=== PATIENT | female | born 1950 | race Caucasian/White ===

== ENCOUNTER 2016-10-28 19:14 | Inpatient (IN) | payer MEDICAID ==
[~2016-10-28] VITALS: Ht 160 cm; Wt 69.2 kg
[~2016-10-28 19:14] MED LIST: DULO60CA44 PO; FERS325 PO; OMEP10 PO; OXYB5 PO; QUET300T2 PO; RISP2TAB76 PO
[2016-10-28] MEDS ORDERED: DSS100 PO (19:56)
[2016-10-28] MEDS ORDERED: DULO60CA44 PO (19:56)
[2016-10-28] MEDS ORDERED: DULO30CA2 PO (19:56)
[2016-10-28] MEDS ORDERED: VIST50 PO (19:56)
[2016-10-28] MEDS ORDERED: BENZ1TAB10 PO (19:56)
[2016-10-28] MEDS ORDERED: QUET200T PO (19:56)
[2016-10-28] MEDS ORDERED: RISP4 PO (19:56)
[2016-10-28] MEDS ORDERED: LORazepam 2 MG TABLET PO PRN (20:45)
[2016-10-28] MEDS ORDERED: QUEtiapine FUMARATE 100 MG TABLET PO PRN (20:45)
[2016-10-28 21:17] VITALS: BP 144/89
[2016-10-28] MEDS ORDERED: PERMETHRIN 5% 60 GM CREAM TP ONE (21:30)
[2016-10-29] VITALS: BP 137/95
[2016-10-29] MEDS: ZOLPIDEM TARTRATE 10 MG TABLET PO PRN ×2 (00:03→19:57)
[2016-10-29 08:01] VITALS: BP 118/72
[2016-10-29 08:19] LABS: BASOPHILS # (AUTO) 0.02 K/uL (0.00-0.20); BASOPHILS % (AUTO) 0.3 % (0.0-2.0); EOSINOPHILS # (AUTO) 0.27 K/uL (0.00-0.70); EOSINOPHILS % (AUTO) 5.38 % (1.0-6.0); HEMATOCRIT 33.2 % (36-46); HEMOGLOBIN 11.1 g/dL (12.0-16.0); LYMPHOCYTES # (AUTO) 1.9 K/uL (1.0-4.8); MEAN CORPUSCULAR HEMOGLOBIN 28.3 pg (26.0-34.0); MEAN CORPUSCULAR HGB CONC 33.5 G/dL (31.0-37.0); MEAN CORPUSCULAR VOLUME 84 fL (80-100); MONOCYTES # (AUTO) 0.5 K/uL (0.1-1.0); MONOCYTES % (AUTO) 9.5 % (2.0-9.0); NEUTROPHILS # (AUTO) 2.4 K/uL (1.8-7.7); NEUTROPHILS % (AUTO) 46.8 % (40.0-70.0); PLATELET COUNT (AUTO) 224 K/uL (150-450); RED BLOOD CELL COUNT(AUTO) 3.93 MIL/uL (4.00-5.20); RED CELL DISTRIBUTION WIDTH 14.5 % (11.5-14.5); WHITE BLOOD COUNT (AUTO) 5.1 K/uL (4.5-11.0)
[2016-10-29 08:44] LABS: ALANINE AMINOTRANSFERASE 27 U/L (12-78); ALBUMIN 3.4 g/dL (3.4-5.0); ANION GAP 9 mmol/L (8-16); ASPARTATE AMINOTRANSFERASE 22 U/L (15-37); BILIRUBIN,TOTAL 0.3 mg/dL (0.1-1.0); CALCIUM, TOTAL 8.6 mg/dL (8.8-10.5); CARBON DIOXIDE 28 mmol/L (22-29); CHLORIDE 106 mmol/L (98-107); CHOL/HDL RATIO 2.3 (3.9-5.7); CREATININE 0.81 mg/dL (0.60-1.30); GLOMERULAR FILTR. RATE CALC > 60 mL/min (>60); POTASSIUM 3.8 mmol/L (3.5-5.1); SODIUM SERUM 143 mmol/L (136-145); TOTAL PROTEIN, SERUM 6.6 g/dL (6.4-8.2); UREA NITROGEN, BLOOD 16 mg/dL (7-18)
[2016-10-29 16:20] VITALS: BP 127/71
[2016-10-30] VITALS (7 sets, daily range): BP systolic 112–154; BP diastolic 70–86
[2016-10-30] MEDS: ARIPiprazole 5 MG TABLET PO SCH (09:17)
[2016-10-30] MEDS ORDERED: ACETAMINOPHEN 325 MG TABLET PO PRN (09:45)
[2016-10-30] MEDS: IBUPROFEN 600 MG TABLET PO PRN ×2 (10:02→17:36)
[2016-10-30] MEDS: MIRTAZAPINE 15 MG TABLET PO SCH (20:12)
[2016-10-31 00:01] VITALS: BP 132/74
[2016-10-31 08:29] VITALS: BP 128/76
[2016-10-31] MEDS: ARIPiprazole 5 MG TABLET PO SCH (08:37)
[2016-10-31 16:01] VITALS: BP 106/62
[2016-10-31] MEDS: MIRTAZAPINE 15 MG TABLET PO SCH (20:21)
[2016-11-01 06:27] VITALS: BP 132/77
[2016-11-01 08:09] LABS: HEMOGLOBIN A1C 5.6 % (4.5-6.2)
[2016-11-01 08:14] LABS: ALANINE AMINOTRANSFERASE 59 U/L (12-78); ALBUMIN 3.6 g/dL (3.4-5.0); ANION GAP 10 mmol/L (8-16); ASPARTATE AMINOTRANSFERASE 50 U/L (15-37); BILIRUBIN,TOTAL 0.2 mg/dL (0.1-1.0); CARBON DIOXIDE 25 mmol/L (22-29); CHLORIDE 106 mmol/L (98-107); CREATININE 0.75 mg/dL (0.60-1.30); GLOMERULAR FILTR. RATE CALC > 60 mL/min (>60); POTASSIUM 3.9 mmol/L (3.5-5.1); SODIUM SERUM 141 mmol/L (136-145); THYROID STIMULATING HORMONE 2.09 uIU/mL (0.36-3.74); TOTAL PROTEIN, SERUM 7.5 g/dL (6.4-8.2); UREA NITROGEN, BLOOD 21 mg/dL (7-18)
[2016-11-01 08:52] VITALS: BP 154/96
[2016-11-01] MEDS: ARIPiprazole 5 MG TABLET PO SCH (08:53)
[2016-11-01 14:23] VITALS: BP 134/70
[2016-11-01 16:17] VITALS: BP 138/95
[2016-11-01] MEDS ORDERED: MIRT30 PO (17:44)
[2016-11-01] MEDS ORDERED: ARIP5TAB9 PO (17:44)
[2016-11-01] MEDS ORDERED: MIRTAZAPINE 30 MG TABLET PO SCH (21:00)
[2016-11-02 01:36] VITALS: BP 122/76
[2016-11-02 08:39] VITALS: BP 130/73
[2016-11-02] MEDS: ARIPiprazole 5 MG TABLET PO SCH (08:48)
[2016-11-02 13:46] LABS: HEPATITIS Bs ANTIGEN SCREEN P Negative (Negative); HEPATITIS C AB SCREEN >11.0 s/co ratio (0.0-0.9)
== END 2016-11-02 13:25 | disposition home or self-care (01) | DRG 750 ==
LOC: B2S 20:41 → EDSTATUS 21:02
PROVIDERS: ADMIT Psychiatry & Neurology Psychiatry; ATTEND Psychiatry & Neurology Psychiatry
DX: F25.1 Schizoaffective disorder, depressive type (principal); R45.851 Suicidal ideations; F60.3 Borderline personality disorder; Z62.819 Personal history of unspecified abuse in childhood; Z63.0 Problems in relationship with spouse or partner; Z90.49 Acquired absence of other specified parts of digestive tract; Z88.5 Allergy status to narcotic agent; Z85.42 Personal history of malignant neoplasm of other parts of uterus; Z85.038 Personal history of other malignant neoplasm of large intestine; Z81.8 Family history of other mental and behavioral disorders; Z80.9 Family history of malignant neoplasm, unspecified
CPT/HCPCS: 80074; 82306; 82607; 82746; 83036; 84439; 84443